=== PATIENT | female | born 1955 | race Caucasian/White ===

== ENCOUNTER 2016-10-18 13:22 | Emergency (ER) | payer OTHER ==
[2016-10-18 13:36] VITALS: BP 124/71; PULSE 77; RESP 16; TEMP 97.9; O2SAT 98
[2016-10-18] MEDS ORDERED: ACETAMINOPHEN 500 MG TAB PO ONE (13:36)
[2016-10-18] MEDS ORDERED: ACETAMINOPHEN 500 MG TAB ONE (13:40)
--- NOTE | 2016-10-18 15:08 | EDPHY ---
H & P Time Seen by Provider: 10/18/16 15:00 HPI/ROS: CHIEF COMPLAINT: Fell on ice, headache, tailbone pain. HISTORY OF PRESENT ILLNESS: The patient is a 61-year-old female who presents after slipping on ice and falling on her tailbone and head this morning at 0500. She has had headache and tailbone pain since falling. Headache is rated 8 /10 and is persistent. She did not lose consciousness. She admits dizziness and nausea. The pain does not radiate. She has been treating the pain with Tylenol. She is not anticoagulated. She denies neck pain, numbness, weakness, abdominal pain, vomiting, or other complaints at this time. REVIEW OF SYSTEMS: A complete 10-point review of systems was performed and is negative except for those items mentioned in the HPI. Past Medical/Surgical History: Atrial flutter. Social History: Former smoker. Smoking Status: Former smoker Physical Exam: General Appearance: Alert, pleasant and talkative Eyes: Pupils equal and round, no conjunctival pallor or injection ENT, Mouth: Mucous membranes moist Neck: Normal inspection Respiratory: Lungs are clear to auscultation Cardiovascular: Regular rate and rhythm Gastrointestinal: Abdomen is soft and non- tender Back: No midline tenderness, no tenderness over the coccyx Neurological: Alert, oriented x3, cranial nerves II through XII intact, motor 5 /5, sensory intact to light touch, normal gait Skin: Warm and dry, no rash Extremities: Nontender, no pedal edema Psychiatric: Mood and affect normal Constitutional: Initial Vital Signs Temperature (C) 36.6 C 10/18/16 13:34 Heart Rate 77 10/18/16 13:34 Respiratory Rate 16 10/18/16 13:34 Blood Pressure 124/71 H 10/18/16 13:34 O2 Sat (%) 98 10/18/16 13:34 O2 Delivery Mode Room Air Allergies/Adverse Reactions: eucalyptus Allergy (Severe, Verified 10/18/16 13:31) Unknown flaxseed [Flaxseed] Allergy (Severe, Verified 10/18/16 13:31) Unknown Erythromycin Stearate [From Erythrocin Stearate] Allergy (Mild, Verified 13:31) Hives penicillin V potassium [From Pen-Vee K] Allergy (Mild, Verified 11/30/15 22:54) Hives gluten Allergy (Verified 10/18/16 13:31) Other-Enter Comments ANESTHESIA Allergy (Intermediate, Uncoded 04/28/15 07:35) SEVERE NAUSEA Home Medications: Medication Instructions Recorded Gabapentin [Neurontin 300 MG (*)] 300 mg PO HS 04/28/15 Herbals/Supplements -Info Only 1 ea PO DAILY 04/28/15 celeCOXIB [Celebrex (*)] 200 mg PO DAILY PRN 04/28/15 Doxylamine Succinate [Unisom Sleep 25 mg PO HS 06/09/16 Aid] Famotidine [Pepcid AC] 10 mg PO DAILY 06/09/16 Acetaminophen [Tylenol 325mg (*)] 325 - 650 mg PO Q4HRS PRN #0 tab 06/10/16 Aspirin EC [Aspirin EC 325 mg (*)] 325 mg PO DAILY #0 tab 06/10/16 Medical Decision Making - Diagnostics Imaging: Study: CT of the head. Indication: Trauma. Results: No acute process. The study was read by the radiologist, Dr. Davis. I viewed the images myself on the PACS system. ED Course/Re-evaluation: This patient presents with a severe headache after a closed head injury. Neurologic exam is normal. Head CT ordered. 1600: Results of head CT reported to me negative by Dr. Davis, radiology. I discussed this with the patient at this time. I answered all of her questions. She was given return precautions prior to discharge. She is comfortable with the plan. Differential Diagnosis: Differential diagnosis includes though it is not limited to fracture, intracranial hemorrhage, pneumothorax, hemothorax, intra-abdominal hemorrhage. - Data Points Medications Given: Discontinued Medications Acetaminophen (Tylenol) 1,000 mg PO EDNOW ONE Stop: 10/18/16 13:37 Last Admin: 10/18/16 13:42 Dose: 1,000 mg Departure - Departure Disposition: Home, Routine, Self-Care Clinical Impression: Fall Qualifiers: Encounter type: initial encounter Qualifier Code: (W19.XXXA) Unspecified fall, initial encounter Concussion Qualifiers: Encounter type: initial encounter Loss of consciousness presence/duration: without LOC Qualifier Code: (S06.0X0A) Concussion without loss of consciousness , initial encounter Condition: Good Instructions: Concussion (ED) Additional Instructions: You can call Dr. Nicole, concussion specialist, tomorrow to set up a follow up appointment for reevaluation. Return to the emergency department if you experience dizziness, vomiting, confusion, or other serious worsening of condition. Referrals: BARBIE TRINIDAD [Primary Care Provider] - As per Instructions Allison Nicole MD [Medical Doctor] - As per Instructions Report Scribed for: Luisa Little Report Scribed by: Alonzo Love Date of Report: 10/18/16 Time of Report: 15:08 Physician Review and Approval Statement: 10/18/16 15:10 Portions of this note were transcribed by a pesticide use medical coordinator. I personally performed a history, physical exam, medical decision making, and confirmed accuracy of information the transcribed note.
--- NOTE | 2016-10-18 16:04 | CT ---
CT Brain (Without Contrast) at 1540 hours History: Headache post head trauma, fall hitting back of head. Comparison: None. Technique: Axial computed tomographic images of the brain without contrast. Dose reduction technique s were utilized. Findings: Ventricles, cisterns, and sulci are normal without atrophy, hydrocephalus, midline shift/h erniation, or epidural/subdural hematomas. No acute intraparenchymal hemorrhage, definite infarct, or mass effect. Bone windows demonstrate no displaced fractures. Paranasal sinuses and mastoid air cell s are clear. Impression: 1. Normal CT brain without contrast. 2. No epidural or subdural hematoma Findings and recommendations discussed with Emergency Department physician, Dr. Luisa Little at 1600 hour, today. Final report concurs with initial preliminary interpretation.
== END 2016-10-18 16:19 | disposition home or self-care (01) ==
DX: S06.0X0A Concussion without loss of consciousness, initial encounter (principal); Z79.82 Long term (current) use of aspirin; Z87.891 Personal history of nicotine dependence; W01.0XXA Fall on same level from slipping, tripping and stumbling without subsequent striking against object, initial encounter

== ENCOUNTER → 2016-11-15 | Outpatient (CLI) | payer OTHER | LOC: FIMAGING 15:48 | DX: Z12.31 Encounter for screening mammogram for malignant neoplasm of breast (principal); Z80.3 Family history of malignant neoplasm of breast | CPT/HCPCS: G0202 ==

== ENCOUNTER 2017-05-09 21:33 | Observation (INO) | payer OTHER ==
--- NOTE | 2017-05-09 21:53 | CPEKG ---
Heart Rate: 66 RR Interval: 909 P-R Interval: 172 QRSD Interval: 86 QT Interval: 432 QTC Interval: 453 P Bells: 33 QRS Bells: -20 T Wave Bells: 22 EKG Severity - OTHERWISE NORMAL ECG - EKG Impression: SINUS RHYTHM EKG Impression: BORDERLINE LEFT AXIS DEVIATION Electronically Signed By: Jozef Sterling 09-May-2017 22:41:12
[2017-05-09] MEDS ORDERED: NS 500 ML IV ONE (22:12)
[2017-05-09] MEDS ORDERED: ASPIRIN 81 MG CHEWABLE TAB PO ONE (22:12)
--- NOTE | 2017-05-09 22:18 | EDPHY ---
H & P Time Seen by Provider: 05/09/17 22:03 HPI/ROS: HPI Palpitations, chest pain. 62-year-old female by private vehicle with family. Patient has a history of atrial flutter and atrial fibrillation. She had an ablation done by Dr. Mckay in June of last year. She reports that since about October she has had intermittent episodes of atrial fibrillation which lasts minutes at a time and are usually associated with dehydration and alcohol use. She reports that tonight she had an episode of atrial fibrillation which she describes as lasting about an hour and a half. She describes this as being associated with chest pain which she describes as a substernal pressure sensation with radiation into the left shoulder and left arm. She has not had chest pain in association with her episodes of atrial fibrillation in the past. She denies any pain currently in the left upper extremity but states that she still has chest discomfort described as a deep pressure in her mid chest. She is not on any anticoagulation or antiplatelet agents. She does take aspirin daily but did not take this tonight. Her mobility architect is currently Dr. Amadou Tovar. ROS: Constitutional: No fever, no chills. No weakness. Eyes: No discharge. No changes in vision. ENT: No sore throat. No nasal congestion or rhinorrhea. Respiratory: No cough. No shortness of breath. Cardiac: As above. Gastrointestinal: No abdominal pain, no vomiting, no diarrhea. Genitourinary: No hematuria. No dysuria or increased frequency with urination. Musculoskeletal: No back pain. No neck pain. No myalgias or arthralgias. Skin: No rashes. Neurological: No headache. No focal weakness or altered sensation. Past medical history: IBS, fibromyalgia, as above, rotator cuff surgery, cholecystitis, esophageal dilation. Social history: Nonsmoker. Drinks alcohol socially. Here with her friend. Physical Exam: General Appearance: Alert, no distress. This patient is responding to questions appropriately and in full sentences. This patient appears well- hydrated and well-nourished. Eyes: Pupils equal and round no pallor or injection. No lid edema, erythema or injection. Respiratory: There are no retractions, lungs are clear to auscultation with good air movement bilaterally. Cardiovascular: Regular rate and rhythm. No murmur. Gastrointestinal: Abdomen is soft and nontender, no masses, bowel sounds normal. No focal tenderness at McBurney's point. No Shepard sign. Neurological: Motor sensory function is grossly intact. Cranial nerves are normal. Skin: Warm and dry, no rashes. Musculoskeletal: Neck is supple and nontender. Extremities are symmetrical. All joints range without pain or impingement. Psychiatric: No agitation. No depression. Database: EKG: EKG time is EKG time is 9:51 p.m.; EKG shows a narrow complex normal sinus rhythm with a ventricular rate of 66. The [place], QRS, QT intervals are within normal limits. There are no ST-T wave changes indicative of ischemic or injury pattern. No evidence of right heart strain. Interpreted by me. Imaging: Chest x-ray AP portable; the cardiac mediastinal silhouette is unremarkable. No evidence of infiltrate or pneumothorax. No acute cardiopulmonary disease process noted. Interpreted by me. Procedures: Emergency department course: IV placed. She was placed on a monitor technician. EKG and chest x-ray obtained. She was started on IV normal saline with 500 cc to be given over 1 hour. She was given 324 mg of chewed aspirin. 11:30 p.m., patient re-evaluated. Plan for admission and results of diagnostic test discussed with her. Vital signs reviewed. All of her questions were answered. She is chest pain-free at this time and does not have any complaints. 11:40 p.m., discussed case with on-call hospitalist. Patient accepted for admission to Dr. Vance. Patient admitted to the hospitalist service telemetry observation in stable and improved condition. Differential Diagnosis: The differential diagnosis on this patient includes but is not limited to intermittent atrial fibrillation, atrial flutter. Electrolyte abnormality, hyperthyroidism, acute coronary syndrome, pulmonary embolism, myocarditis, pericarditis, aortic dissection unlikely. This represents a partial list of diagnoses considered. These considerations are based on history, physical exam , past history, reassessment and diagnostic testing. Smoking Status: Former smoker Constitutional: Initial Vital Signs Temperature (C) 36.8 C 05/09/17 21:39 Heart Rate 52 L 05/09/17 21:39 Respiratory Rate 20 05/09/17 21:39 Blood Pressure 164/73 H 05/09/17 21:39 O2 Sat (%) 97 05/09/17 21:39 O2 Delivery Mode Room Air Allergies/Adverse Reactions: eucalyptus Allergy (Severe, Verified 10/18/16 13:31) Unknown flaxseed [Flaxseed] Allergy (Severe, Verified 10/18/16 13:31) Unknown Erythromycin Stearate [From Erythrocin Stearate] Allergy (Mild, Verified 13:31) Hives penicillin V potassium [From Pen-Vee K] Allergy (Mild, Verified 11/30/15 22:54) Hives adhesive Allergy (Verified 05/09/17 21:37) gluten Allergy (Verified 10/18/16 13:31) Other-Enter Comments ANESTHESIA Allergy (Intermediate, Uncoded 04/28/15 07:35) SEVERE NAUSEA Home Medications: Medication Instructions Recorded Gabapentin [Neurontin 300 MG (*)] 300 mg PO HS 04/28/15 Herbals/Supplements -Info Only 1 ea PO DAILY 04/28/15 celeCOXIB [Celebrex (*)] 200 mg PO DAILY PRN 04/28/15 Famotidine [Pepcid AC] 10 mg PO DAILY 06/09/16 Acetaminophen [Tylenol 325mg (*)] 325 - 650 mg PO Q4HRS PRN #0 tab 06/10/16 Aspirin EC [Aspirin EC 325 mg (*)] 325 mg PO DAILY #0 tab 06/10/16 Medical Decision Making - Diagnostics Imaging Results: Imaging Impressions Chest X-Ray 05/09/17 22:13 Impression: 1. No acute pulmonary disease. 2. Consider chest two views when the patient's medical condition permits. - Data Points Laboratory Results: Laboratory Results 05/09/17 22:50 05/09/17 22:50 05/09/17 05/09/17 22:50 22:50 WBC 8.89 10^3/uL 10^3/uL (3.80-9.50) RBC 4.22 10^6/uL 10^6/uL (4.18-5.33) Hgb 14.4 g/dL g/dL (12.6-16.3) Hct 41.8 % % (38.0-47.0) MCV 99.1 fL fL (81.5-99.8) MCH 34.1 pg pg (27.9-34.1) MCHC 34.4 g/dL g/dL (32.4-36.7) RDW 12.4 % % (11.5-15.2) Plt Count 202 10^3/uL 10^3/uL (150-400) MPV 10.3 fL fL (8.7-11.7) Neut % (Auto) 53.9 % % (39.3-74.2) Lymph % (Auto) 36.1 % % (15.0-45.0) [place] % (Auto) 7.0 % % (4.5-13.0) Eos % (Auto) 2.2 % % (0.6-7.6) Baso % (Auto) 0.6 % % (0.3-1.7) Nucleat RBC Rel Count 0.0 % % (0.0-0.2) Absolute Neuts (auto) 4.79 10^3/uL 10^3/uL (1.70-6.50) Absolute Lymphs (auto) 3.21 10^3/uL H 10^3/uL (1.00-3.00) Absolute Monos (auto) 0.62 10^3/uL 10^3/uL (0.30-0.80) Absolute Eos (auto) 0.20 10^3/uL 10^3/uL (0.03-0.40) Absolute Basos (auto) 0.05 10^3/uL 10^3/uL (0.02-0.10) Absolute Nucleated RBC 0.00 10^3/uL 10^3/uL (0-0.01) Immature Gran % 0.2 % % (0.0-1.1) Immature Gran # 0.02 10^3/uL 10^3/uL (0.00-0.10) Sodium 133 mEq/L L mEq/L (134-144) Potassium 3.7 mEq/L mEq/L (3.5-5.2) Chloride 102 mEq/L mEq/L (97-110) Carbon Dioxide 21 mEq/l L mEq/l (22-31) Anion Gap 10 mEq/L mEq/L (8-16) BUN 26 mg/dL H mg/dL (7-23) Creatinine 1.1 mg/dL H mg/dL (0.6-1.0) Estimated GFR 50 Glucose 83 mg/dL mg/dL (70-100) Calcium 9.4 mg/dL mg/dL (8.5-10.4) Creatine Kinase 78 IU/L IU/L (0-156) CK-MB (CK-2) Fraction 0.91 ng/mL ng/mL (0.00-3.19) Troponin I < 0.012 ng/mL ng/mL (0.000-0.034) TSH 6.330 uIU/mL H uIU/mL (0.465-4.680) Medications Given: Discontinued Medications Aspirin (Aspirin) 324 mg PO EDNOW ONE Stop: 05/09/17 22:13 Last Admin: 05/09/17 23:00 Dose: Not Given Sodium Chloride (Ns) 500 mls @ 1,000 mls/hr IV EDNOW ONE PRN Reason: Protocol Stop: 05/09/17 22:41 Last Admin: 05/09/17 23:00 Dose: Not Given Departure - Departure Disposition: [facility] Inpatient Acute Clinical Impression: Palpitations, Chest pain Condition: Fair
[2017-05-09 22:54] LABS: % IMMATURE GRANULYOCYTES 0.2 % (0.0-1.1); ABSOLUTE IMMATURE GRANULOCYTES 0.02 10^3/uL (0.00-0.10); ADD DIFF? NO; ADD MORPH? NO; ADD SCAN? NO; ATYPICAL LYMPHOCYTE FLAG 0 (0-99); FRAGMENT RBC FLAG 0 (0-99); HEMATOCRIT 41.8 % (38.0-47.0); HEMOGLOBIN 14.4 g/dL (12.6-16.3); LEFT SHIFT FLG 0 (0-99); LIPEMIA HEMOLYSIS FLAG 90 (0-99); MEAN CELL HEMOGLOBIN 34.1 pg (27.9-34.1); MEAN CELL HEMOGLOBIN CONCENTR. 34.4 g/dL (32.4-36.7); MEAN CELL VOLUME 99.1 fL (81.5-99.8); MEAN PLATELET VOLUME 10.3 fL (8.7-11.7); PLATELET CLUMPS FLAG 0 (0-99); PLATELET COUNT 202 10^3/uL (150-400); RED BLOOD CELL COUNT 4.22 10^6/uL (4.18-5.33); RED CELL DISTRIBUTION WIDTH 12.4 % (11.5-15.2)
[2017-05-09 23:13] LABS: ANION GAP 10 mEq/L (8-16); CALCIUM 9.4 mg/dL (8.5-10.4); CARBON DIOXIDE 21 mEq/l (22-31); CHLORIDE 102 mEq/L (97-110); CREATININE 1.1 mg/dL (0.6-1.0); GLOMERULAR FILTRATION RATE 50; GLUCOSE 83 mg/dL (70-100); POTASSIUM 3.7 mEq/L (3.5-5.2); SODIUM 133 mEq/L (134-144)
[2017-05-09 23:25] LABS: CREATINE KINASE-MB FRACTION 0.91 ng/mL (0.00-3.19); TROPONIN I < 0.012 ng/mL (0.000-0.034)
--- NOTE | 2017-05-10 00:33 | CPEKG ---
Heart Rate: 57 RR Interval: 1053 P-R Interval: 212 QRSD Interval: 88 QT Interval: 456 QTC Interval: 444 P [place]: 30 QRS [place]: -14 T Wave [place]: 18 EKG Severity - NORMAL ECG - EKG Impression: SINUS RHYTHM Electronically Signed By: Bailey Roblero 10-May-2017 01:24:01
[2017-05-10] MEDS ORDERED: ONDANSETRON DISINTEGRATING 4 MG TAB PO PRN (00:34)
[2017-05-10] MEDS ORDERED: ACETAMINOPHEN 325 MG TAB PO PRN (00:34)
[2017-05-10] MEDS ORDERED: ONDANSETRON 4 MG/2 ML VIAL IVP PRN (00:34)
--- NOTE | 2017-05-10 01:23 | PDGENHP ---
History and Physical - Chief Complaint Palpitations, chest pain - History of Present Illness 62 yo F w/ hx of aflutter s/p ablation and fibromyalgia presents with palpitations and chest pain. Patient has been evaluated numerous times for similar complaints. Patient describes about 90 minutes of palpitations. She then noticed 5/10 left sided chest pain with radiation down left arm. She denies associated SOB, diaphoresis, or dizziness with this pain. These symptoms are very similar to those described at her last cardiology visit on 01/26/[address] Mckay. She was chest pain free at the time of my evaluation. She did complain of palpitations during my exam, which correlated with NSR w/ PACs on the monitor with HR in 60-70 range. She went of vacation recently and drank alcohol , which she feels contributed to worsening of her symptoms. Summary of recent cardiac work-up (Echo, EP study, stress, angio) detailed in table below. 01/11/2017 ECHO Summary ECHO 01/11/17 01/24/2017 8:32 AM (HILARY): 60%. Normal left ventricular systolic function with no regional wall motion abnormalities noted. Mild TR. 06/09/2016 EPS Summary SVT + AFl abl - success 06/09/16 07/20/2016 2:37 PM (ALFONSO): Slow AV uzma pathway ablation 07/20/2016 2:36 PM (ALFONSO): Successful catheter mediated ablation of cavotricuspid isthmus achieving bi-directional conduction block across cavotricuspid isthmus 01/19/2017 MPI/NUC Summary ETT/MPI 01/19/2017 01/24/2017 9:51 AM (JOLYNN): ETT Data: Pt walked for 6:30 min., 7.1 METS, Max HR: 140 bpm, 88% MPHR, Max BP:160/70 , no EKG changes, DTS: 6 [place] [facility] [place] coronary w contrast 04/28/15 04/30/2015 4:07 PM (VANESA.S): normal 3 vessel coronary anatomy. History Information - Allergies/Home Medication List Allergies/Adverse Reactions: eucalyptus Allergy (Severe, Verified 10/18/16 13:31) Unknown flaxseed [Flaxseed] Allergy (Severe, Verified 10/18/16 13:31) Unknown Erythromycin Stearate [From Erythrocin Stearate] Allergy (Mild, Verified 13:31) Hives penicillin V potassium [From Pen-Vee K] Allergy (Mild, Verified 11/30/15 22:54) Hives adhesive Allergy (Verified 05/09/17 21:37) gluten Allergy (Verified 10/18/16 13:31) Other-Enter Comments ANESTHESIA Allergy (Intermediate, Uncoded 04/28/15 07:35) SEVERE NAUSEA Home Medications: Gabapentin [Neurontin 300 MG (*)] 300 mg PO HS 04/28/15 [Last Taken 06/08/16] Herbals/Supplements -Info Only 1 ea PO DAILY 04/28/15 [Last Taken Unknown] celeCOXIB [Celebrex (*)] 200 mg PO DAILY PRN 04/28/15 [Last Taken 06/06/16] Famotidine [Pepcid AC] 10 mg PO DAILY 06/09/16 [Last Taken 06/08/16] I have personally reviewed and updated: family history, medical history - Past Medical History atrial fibrillation, fibromyalgia - Surgical History Reports: ablation Additional surgical history: Knee and shoulder surgery - Family History Additional family history: Afib, colon CA - Social History Smoking Status: Former smoker Alcohol Use: Occasionally Drug Use: None Review of Systems ROS: 10pt was reviewed & negative except for what was stated in HPI & below Physical Exam Temp Pulse Resp BP Pulse Ox 36.8 C 64 18 130/78 H 97 05/10/17 00:54 05/10/17 00:54 05/10/17 00:54 05/10/17 00:54 05/10/17 00:54 Constitutional: no apparent distress, appears nourished Eyes: PERRL, EOMI Ears, Nose, Mouth, Throat: moist mucous membranes, no oral mucosal ulcers Cardiovascular: no murmur, rub, or gallop, other (Irregular rhythm) Respiratory: no respiratory distress, clear to auscultation Gastrointestinal: normoactive bowel sounds, soft, non-tender abdomen Skin: warm, no rashes or abrasions Musculoskeletal: full muscle strength, no muscle tenderness Neurologic: AAOx3, CN II-XII Intact Psychiatric: interacting appropriately, not anxious Lab Data & Imaging Review 05/09/17 22:50 05/09/17 22:50 WBC 8.89 10^3/uL (3.80-9.50) 05/09/17 22:50 RBC 4.22 10^6/uL (4.18-5.33) 05/09/17 22:50 Hgb 14.4 g/dL (12.6-16.3) 05/09/17 22:50 Hct 41.8 % (38.0-47.0) 05/09/17 22:50 MCV 99.1 fL (81.5-99.8) 05/09/17 22:50 MCH 34.1 pg (27.9-34.1) 05/09/17 22:50 MCHC 34.4 g/dL (32.4-36.7) 05/09/17 22:50 RDW 12.4 % (11.5-15.2) 05/09/17 22:50 Plt Count 202 10^3/uL (150-400) 05/09/17 22:50 MPV 10.3 fL (8.7-11.7) 05/09/17 22:50 Neut % (Auto) 53.9 % (39.3-74.2) 05/09/17 22:50 Lymph % (Auto) 36.1 % (15.0-45.0) 05/09/17 22:50 [place] % (Auto) 7.0 % (4.5-13.0) 05/09/17 22:50 Eos % (Auto) 2.2 % (0.6-7.6) 05/09/17 22:50 Baso % (Auto) 0.6 % (0.3-1.7) 05/09/17 22:50 Nucleat RBC Rel Count 0.0 % (0.0-0.2) 05/09/17 22:50 Absolute Neuts (auto) 4.79 10^3/uL (1.70-6.50) 05/09/17 22:50 Absolute Lymphs (auto) 3.21 10^3/uL (1.00-3.00) H 05/09/17 22:50 Absolute Monos (auto) 0.62 10^3/uL (0.30-0.80) 05/09/17 22:50 Absolute Eos (auto) 0.20 10^3/uL (0.03-0.40) 05/09/17 22:50 Absolute Basos (auto) 0.05 10^3/uL (0.02-0.10) 05/09/17 22:50 Absolute Nucleated RBC 0.00 10^3/uL (0-0.01) 05/09/17 22:50 Immature Gran % 0.2 % (0.0-1.1) 05/09/17 22:50 Immature Gran # 0.02 10^3/uL (0.00-0.10) 05/09/17 22:50 Sodium 133 mEq/L (134-144) L 05/09/17 22:50 Potassium 3.7 mEq/L (3.5-5.2) 05/09/17 22:50 Chloride 102 mEq/L (97-110) 05/09/17 22:50 Carbon Dioxide 21 mEq/l (22-31) L 05/09/17 22:50 Anion Gap 10 mEq/L (8-16) 05/09/17 22:50 BUN 26 mg/dL (7-23) H 05/09/17 22:50 Creatinine 1.1 mg/dL (0.6-1.0) H 05/09/17 22:50 Estimated GFR 50 05/09/17 22:50 Glucose 83 mg/dL (70-100) 05/09/17 22:50 Calcium 9.4 mg/dL (8.5-10.4) 05/09/17 22:50 Creatine Kinase 78 IU/L (0-156) 05/09/17 22:50 CK-MB (CK-2) Fraction 0.91 ng/mL (0.00-3.19) 05/09/17 22:50 Troponin I < 0.012 ng/mL (0.000-0.034) 05/09/17 22:50 TSH 6.330 uIU/mL (0.465-4.680) H 05/09/17 22:50 Visualized and Interpreted Chest x-ray results: Yes Chest X-Ray results: no infiltrate Visualized and Interpreted EKG results: Yes EKG Interpretation: Positive for: normal sinsus rhythm Assessment & Plan Assessment: 62 yo F w/ hx of aflutter s/p ablation and fibromyalgia presenting with palpitations and chest pain. Plan: 1. Palpitations - Similar symptoms to those documented by Dr. Mckay on 01/26 visit. Patient complained of symptoms during my evaluation, which correlated to PACs on the vehicle monitor technician with HR in 60-[address] Mckay's note, it seems Holter monitoring in the past only revealed PACs as well. - Monitor on telemetry - Cardiology consult 2. Chest pain - Occurred in the setting of above symptoms. Pain had both typical (left-sided, radiation down left arm) and atypical (not associated with exertion or relieved by rest) features. Troponin negative and ECG w/o ischemia on admission. Low likelihood of ACS noting normal nuclear stress and echocardiogram in December of 2016. - Trend enzymes 3. Fibromyalgia - On gabapentin as an outpatient Diet - Regular Code - Full Ppx - LMWH Dispo - Admit to observation
[2017-05-10 04:10] LABS: % IMMATURE GRANULYOCYTES 0.1 % (0.0-1.1); ABSOLUTE IMMATURE GRANULOCYTES 0.01 10^3/uL (0.00-0.10); ADD DIFF? NO; ADD MORPH? NO; ADD SCAN? NO; ATYPICAL LYMPHOCYTE FLAG 10 (0-99); FRAGMENT RBC FLAG 0 (0-99); HEMATOCRIT 39.2 % (38.0-47.0); HEMOGLOBIN 13.7 g/dL (12.6-16.3); LEFT SHIFT FLG 0 (0-99); LIPEMIA HEMOLYSIS FLAG 90 (0-99); MEAN CELL HEMOGLOBIN 34.5 pg (27.9-34.1); MEAN CELL HEMOGLOBIN CONCENTR. 34.9 g/dL (32.4-36.7); MEAN CELL VOLUME 98.7 fL (81.5-99.8); MEAN PLATELET VOLUME 10.2 fL (8.7-11.7); PLATELET CLUMPS FLAG 0 (0-99); PLATELET COUNT 197 10^3/uL (150-400); RED BLOOD CELL COUNT 3.97 10^6/uL (4.18-5.33); RED CELL DISTRIBUTION WIDTH 12.2 % (11.5-15.2)
[2017-05-10 04:28] LABS: ANION GAP 10 mEq/L (8-16); CALCIUM 8.7 mg/dL (8.5-10.4); CARBON DIOXIDE 21 mEq/l (22-31); CHLORIDE 111 mEq/L (97-110); GLOMERULAR FILTRATION RATE 56; GLUCOSE 88 mg/dL (70-100); MAGNESIUM 2.1 mg/dL (1.6-2.3); POTASSIUM 3.8 mEq/L (3.5-5.2); SODIUM 142 mEq/L (134-144)
[2017-05-10 04:32] LABS: TROPONIN I < 0.012 ng/mL (0.000-0.034)
--- NOTE | 2017-05-10 07:44 | CPEKG ---
Heart Rate: 60 RR Interval: 1000 P-R Interval: 204 QRSD Interval: 84 QT Interval: 432 QTC Interval: 432 P [place]: 33 QRS [place]: -17 T Wave [place]: 16 EKG Severity - OTHERWISE NORMAL ECG - EKG Impression: SINUS RHYTHM EKG Impression: BORDERLINE LEFT AXIS DEVIATION Electronically Signed By: Tank Cain 10-May-2017 09:05:25
[2017-05-10] MEDS: ENOXAPARIN 40 MG/0.4 ML SYR SC SCH (09:16)
[2017-05-10] MEDS ORDERED: FAMOTIDINE 10 MG PO PRN (09:42)
[2017-05-10] MEDS ORDERED: FAMOTIDINE 20 MG TAB PO PRN (09:48)
[2017-05-10] MEDS: ASPIRIN 81 MG CHEWABLE TAB PO SCH (10:08)
--- NOTE | 2017-05-10 12:23 | GCON ---
[f rep st] CONSULTATION CARDIOLOGY CONSULTATION DATE OF CONSULTATION: 05/10/2017 PRIMARY ELECTRO MECHANICAL DESIGNER: Dr. Tal Mckay. REASON FOR CONSULTATION: We were asked by Dr. Vance to evaluate this patient for her chest pains and palpitations. HISTORY OF PRESENT ILLNESS: This patient is a 62-year-old female with a history of atrial flutter status post ablation in May 2016, who was admitted with palpitations and chest pains. She reports onset of symptoms 4 months after her ablation. She started to get what she felt was atrial fibrillation. For the past 2 months, she has had no atrial fibrillation after weaning off alcohol. She recently went on vacation and had alcoholic drinks. With that, she noted return of her "atrial fibrillation." She would be able to robbie her symptoms by sitting up and hydrating by drinking electrolyte solution. Last night, her symptoms would not robbie, despite getting out of bed and drinking fluids. She notes an associated pressure sensation in her chest. She also has left shoulder pain that is 3/10 to 4/10 discomfort. She will have paroxysms of worsening pain that will go up to 7/10 lasting seconds. She notes associated nerve tingling in the palmar surface of her hand. When she has these symptoms, these will last for at least a few days. She does note that she has rotator cuff issues in her left shoulder and is unsure if the pain symptoms she describes is more related to her musculoskeletal issues. Currently, she is not noting the pressure sensation, but she is having a headache and nausea. She has not had any loss of consciousness or dyspnea with her symptoms. She denies any PND, orthopnea, or peripheral edema. She did report these symptoms in January to Dr. Mckay. She was advised for emergency department evaluation, but declined at that time. Her presentation last night was prompted by the fact that her symptoms persisted for more than the typical half hour. She noted symptoms for 1-1/2 hours. She does describe having the left shoulder blade pain at this time. At 2:20, she woke up with symptoms of pressure and a dry cough. These were similar to what has been recently occurring. At that time, she was noted to have what appears to be an atrial arrhythmia of atrial flutter and fibrillation. PAST MEDICAL HISTORY: 1. Atrial fib and flutter. 2. Fibromyalgia. 3. Osteoarthritis. SURGICAL HISTORY: Of gallbladder, appendectomy, knee and shoulder surgery. FAMILY HISTORY: Of atrial fibrillation and colon cancer. MEDICATIONS: At home are on her med reconciliation. She verbally acknowledges that she is taking Neurontin, Celebrex and famotidine. She is also on hormone replacement therapy, which is a compounded estrogen and progesterone. She is not on Ambien because she did note worsening somnolence with that even during the daytime. ALLERGIES: Listed as eucalyptus, flaxseed, erythromycin penicillin V, adhesive , gluten and anesthesia. SOCIAL HISTORY: The patient reports occasional alcohol intake. She is a former smoker. She is . REVIEW OF SYSTEMS: As per HPI. A complete 10-point review of systems was obtained and is negative, except for what is dictated. PHYSICAL EXAM: VITAL SIGNS: BP of 95/63, heart rate of 63, respirations 20, O2 saturation 94% on room air, temp of 98.4 degrees Fahrenheit. GENERAL: She is a very pleasant female in no apparent distress. EYES: Without scleral icterus. NECK: Supple with trachea midline. HEART: Regular rate and rhythm, with no rubs, gallops, or murmurs auscultated. LUNGS: Clear. ABDOMEN: Soft with normoactive bowel sounds. SKIN: Warm and dry. MUSCULOSKELETAL: Without obvious joint deformity. PSYCH: Normal mood and affect. : No Ritter present. IMAGING: Last MPI stress test from our office is Dated January 19, 2017. She was able to walk 6-1/2 minutes with a normal perfusion exam. Last echo is dated January 11, 2017 and shows normal LV systolic function with no regional wall abnormalities, mild TR noted. Last Holter from our office was December 31, 2016 with a 45 second episode of atrial fibrillation noted. There were frequent premature atrial beats with symptoms correlating to PACs. A 12-lead ECG personally interpreted demonstrates sinus rhythm with low voltage. She has a leftward axis. Telemetry personally reviewed, from 220-240, shows A flutter with RVR and atrial fibrillation. LABORATORY DATA: BMP with sodium 142, potassium 3.8, chloride 111, CO2 was 21, BUN 22, creatinine 1, glucose of 88. Troponins negative x2. TSH of 6.33. WBC was 6.92, hemoglobin 13.7, hematocrit 39.2, platelet count 197. IMPRESSION AND PLAN: This patient is a 62-year-old female who presents with chest pressure and palpitations. She has a history of normal cardiac catheterization in 2015. 1. Recurrent atrial flutter and fibrillation. This was reviewed with Dr. Mckay. We will have Dr. Rizo evaluate the patient and consider the patient for antiarrhythmic versus rate control therapy. Her [id number] is 1. She is agreeable to start aspirin therapy. 2. Chest pressure. This is related likely to her atrial arrhythmias. 3. Left shoulder pain. Etiology is likely musculoskeletal. She has ruled out via cardiac enzymes and ECG is nonischemic appearing. 4. Elevated thyroid-stimulating hormone. Free T3, T4 will be obtained. /[id number]/MODL MTDD
--- NOTE | 2017-05-10 12:48 | HOSPPROG ---
Hospitalist Progress Note Assessment/Plan: Palpitations - h/o A fib/flutter and PAC's. Telemetry personally reviewed and interpreted, had episodes of wide complex tachycardia overnight, ?flutter vs VF vs artifact. This was associated with symptoms. Chads-vasc 1. Will cont ASA therapy. Currently in NSR, rate controlled. Discussed with Dr. Rizo, suspects artifact causing telemetry findings. -start Dilt IR 30 q6h and monitor Chest pain - trops neg x2. EKG non-ischemic. Currently chest pain free. Had neg stress test 01/2017. Sub-clinical hypothyroidism - TSH elevated, nl T3,T4. Will defer initiation of levothyroxine at this time given arrhythmia issue above. -outpt recheck of TSH Fibromyalgia - cont outpt meds Full code Subjective: pt feels well now. Reports having some CP and palpitations overnight which correlate with changes on telemetry. Currently CP free, no SOB. No fevers. Feels well, but concerned about recurring symptoms. Objective: Vital Signs Temp Pulse Resp BP Pulse Ox 37.1 C 70 16 101/79 97 05/10/17 11:31 05/10/17 11:31 05/10/17 11:31 05/10/17 11:31 05/10/17 11:31 Laboratory Results 05/10/17 04:04 05/10/17 04:04 05/09/17 05/10/17 05/11/17 05:59 05:59 05:59 Intake Total 50 Balance 50 - Physical Exam Constitutional: no apparent distress Eyes: PERRL Ears, Nose, Mouth, Throat: moist mucous membranes Cardiovascular: regular rate and rhythym Respiratory: no respiratory distress, clear to auscultation Gastrointestinal: normoactive bowel sounds, soft, non-tender abdomen Skin: warm Musculoskeletal: full muscle strength Neurologic: AAOx3 Psychiatric: interacting appropriately ICD10 Worksheet Patient Problems: Problems Problem Status Onset Chest pain Acute Palpitations Acute Atrial flutter Acute
[2017-05-10] MEDS: DILTIAZEM 30 MG TAB PO SCH ×2 (15:27→21:00)
[2017-05-10] MEDS ORDERED: GABAPENTIN 300 MG CAP PO SCH (21:00)
[2017-05-10] MEDS: [UNRECOGNIZED DRUG - OTHER] TP SCH (21:21)
[2017-05-10] MEDS: PROGESTERONE TP SCH (21:21)
[2017-05-11] MEDS: DILTIAZEM 30 MG TAB PO SCH ×2 (01:40→06:31)
[2017-05-11 04:42] VITALS: O2SAT 96
[2017-05-11 07:33] VITALS: BP 105/73; PULSE 72; RESP 18; TEMP 98
[2017-05-11] MEDS: ASPIRIN 81 MG CHEWABLE TAB PO SCH (09:43)
[2017-05-11] MEDS: ENOXAPARIN 40 MG/0.4 ML SYR SC SCH (09:43)
[2017-05-11] MEDS: [UNRECOGNIZED DRUG - OTHER] TP SCH (09:43)
[2017-05-11] MEDS: PROGESTERONE TP SCH (09:43)
--- NOTE | 2017-05-11 15:01 | GDS ---
[f rep st] DISCHARGE SUMMARY DISCHARGE DIAGNOSES: 1. Palpitations, likely consistent with coarse atrial fibrillation. 2. History of previous atrial flutter ablation in 2015. 3. Fibromyalgia. PROCEDURES: Chest x-ray and serial EKGs. BRIEF HISTORY: Please see dictated H and P for complete details. In brief, the patient is a 62-yea r-old female with a history of atrial flutter ablation in 2015, who was admitted with palpitations a nd chest pain, starting approximately 4 months after her atrial flutter ablation. Symptoms had been controlled by cessation of alcohol intake. However, she went on vacation last week and had more al cohol than her typical. During the trip and upon her return, she had noted more palpitations with a ssociated chest pressures. Typically, she would be able to robbie her symptoms by sitting up and dri nking fluids, however, these maneuvers were not enough and symptoms persisted. Therefore, she prese nted to the emergency department for further evaluation. Given complaints of chest pressure, she wa s admitted for rule out. HOSPITAL COURSE BY PROBLEM: 1. Recurrent atrial fibrillation. This was evaluated by ECG, on telemetry. She has been started o n rate control with short-acting diltiazem. She will be kept on this agent, particularly since her symptoms are more prominent in the evenings, she is advised on p.r.n. dosing. She also has PACs, wh ich are consistent with her "sensations in her chest." She is advised of the benign nature of these , which does not necessarily warrant having to take the diltiazem throughout the course of the day. 2. Chest pressure. This was related to her atrial arrhythmias. She has ruled out via enzymes. He r last heart catheterization was in 2014. Dr. Bart Rizo reviewed this and found her coronary a rteries to be totally normal. She may continue primary prevention at this point. 3. Elevated TSH. Her TSH was 6.33 upon admission. Her free T4 and free T3 are within normal limit s. PHYSICAL EXAMINATION: VITAL SIGNS: On day of discharge, blood pressure 105/73, heart rate 72, resp irations 18, O2 saturation 96% on room air, temp of 98 degrees. GENERAL: She is a very pleasant fe male, in no apparent distress. EYES: PERRL. HEART: Regular rate and rhythm. LUNGS: Clear. EXT REMITIES: Without clubbing, cyanosis, or edema. BMP with sodium 142, potassium 3.8, chloride 111, CO2 21, BUN 22, creatinine 1, glucose of 88. RESULTS PENDING: None. DIET: Per previous. ACTIVITY: As tolerated. DISCHARGE MEDICATIONS: Please see med reconciliation. She may continue her home medications, which include gabapentin, famotidine, Celebrex, and HRT. She is being started on diltiazem 30 mg q.6 p.r .n. She may also take Tylenol 650 p.o. q.4 hours p.r.n. headaches. FOLLOWUP INSTRUCTIONS: 1. Follow up Holter monitor in our office in 1-2 weeks' time. 2. Follow up with Dr. Mckay in 2 weeks' time. /[id number]/MODL
== END 2017-05-11 11:24 | disposition home or self-care (01) ==
LOC: F2W 05-10 00:45
PROVIDERS: ADMIT Student in an Organized Health Care Education/Training Program; ATTEND Internal Medicine Interventional Cardiology
DX: R00.2 Palpitations (principal); R07.89 Other chest pain; I48.91 Unspecified atrial fibrillation; M79.7 Fibromyalgia; Z80.0 Family history of malignant neoplasm of digestive organs
CPT/HCPCS: 71010; 93005; 99285; G0378; 84481-90; J1650

== ENCOUNTER → 2018-01-31 | Outpatient (CLI) | payer OTHER | LOC: FIMAGING 15:29 | PROVIDERS: ATTEND Family Medicine | DX: Z12.31 Encounter for screening mammogram for malignant neoplasm of breast (principal) ==

== ENCOUNTER → 2019-02-02 | Outpatient (CLI) | payer OTHER | LOC: BMCIMAGING 07:52 | PROVIDERS: ATTEND Family Medicine | DX: Z12.31 Encounter for screening mammogram for malignant neoplasm of breast (principal); Z80.3 Family history of malignant neoplasm of breast ==